=== PATIENT | female | born 1965 | race Hispanic/Latino ===

== ENCOUNTER 2021-05-12 10:52 | Inpatient (IN) | payer SELFPAY ==
[~2021-05-12 10:52] MED LIST: Iopamidol-370 76% 500 ML 1 ML ONE
[2021-05-12 11:27] LABS: #Lymphocytes 2.1 thou/uL (1.20-3.40); #Monocytes 0.7 thou/uL (0.11-0.59); #Neutrophils 10.5 thou/uL (1.40-6.50); %Basophils 0.2 % (0.0-1.0); %Eosinophils 0.1 % (0.0-10.0); %Lymphocytes 15.4 % (21.0-51.0); %Monocytes 5.4 % (0.0-10.0); %Neutrophils 78.9 % (42.0-75.0); Hemoglobin 15.5 g/dL (12.0-16.0); Mean Corpuscular HGB CONC 34.4 g/dL (32.0-36.0); Mean Corpuscular Hemoglobin 29.3 pg (27.0-31.0); Mean Platelet Volume 9.7 fL (7.4-10.4); Platelet Count 242 thou/uL (130-400); RBC Distribution Width 11.6 % (11.5-14.5); White Blood Cell (WBC) Count 13.3 thou/uL (4.8-10.8)
[2021-05-12] MEDS ORDERED: cefTRIAXone\\ROCEPHIN 2 GM VIAL ONE (11:30)
[2021-05-12 11:55] LABS: Bilirubin Unable to Interpret (Negative); Blood, Urine Unable to Interpret (Negative); Clarity Cloudy (Clear); Glucose, Urine (Dipstick) Unable to Interpret mg/dL (Negative); Ketone, Urine Unable to Interpret mg/dL (Negative); Leukocyte Unable to Interpret Leu/uL (Negative); Nitrite Unable to Interpret (Negative); Protein, Urine (Dipstick) Unable to Interpret mg/dL (Neg-Trace); Specific Gravity, Urine 1.039 (1.002-1.036); Urobilinogen UNABLE TO INTERPRET mg/dL (Less than 2)
[2021-05-12 11:56] LABS: RBC/HPF Greater than 50 HPF (0-3)
[2021-05-12 11:57] LABS: Bacteria/HPF Rare-Few HPF (None Seen); Squamous Epithelial 0-3 HPF (0-3)
[2021-05-12 12:20] LABS: INR-International Normal Ratio 1.1; PTT 30.5 sec (22.9-36.1)
[2021-05-12 12:31] LABS: ALT (SGPT) 24 U/L (8-55); AST (SGOT) 18 U/L (5-34); Albumin 3.6 g/dL (3.5-5.0); Alkaline Phosphatase 94 U/L (40-110); Anion Gap 17 mmol/L (10-20); BUN (Urea Nitrogen) 11 mg/dL (9.8-20.1); Bilirubin, Total 0.5 mg/dL (0.2-1.2); Calc. Creatinine Clearance 0 mL/min (70-130); Calcium 8.8 mg/dL (7.8-10.44); Carbon Dioxide 19 mmol/L (22-29); Chloride 99 mmol/L (98-107); Globulin 3.9 g/dL (2.4-3.5); Glucose 307 mg/dL (70-105); Potassium 3.5 mmol/L (3.5-5.1); Protein, Total 7.5 g/dL (6.0-8.3); Sodium 131 mmol/L (136-145)
[2021-05-12 14:28] LABS: Lactic Acid 1.4 mmol/L (0.5-2.2)
[2021-05-12] MEDS ORDERED: Ondansetron ODT 4 MG TAB PO PRN (15:41)
[2021-05-12] MEDS ORDERED: Dextrose 5% in Water 1,000 ML IV PRN (15:41)
[2021-05-12] MEDS ORDERED: Dextrose 50% Abboject 50 ML SYRINGE SLOW IVP PRN (15:41)
[2021-05-12] MEDS ORDERED: Acetaminophen 325 MG TAB PO PRN (15:41)
[2021-05-12] MEDS ORDERED: HumaLOG 300 UNITS/3 ML VIAL SC PRN (15:41)
[2021-05-12 15:55] VITALS: BMI 28.3
[2021-05-12] MEDS ORDERED: cefTRIAXone\\ROCEPHIN 2 GM in Sodium Chloride 0.9% 100 ML IVPB SCH (16:00)
[2021-05-12] MEDS ORDERED: metroNIDAZOLE 500 MG TAB PO SCH (16:15)
[2021-05-12] MEDS: Sodium Chloride 0.9% 1,000 ML IV SCH ×2 (17:00→21:06)
[2021-05-12] MEDS: HumaLOG 300 UNITS/3 ML VIAL SC PRN (17:02)
[2021-05-12 21:00] LABS: SARS-CoV-2 PCR by NAA Not Detected (NotDetected)
[2021-05-12] MEDS: metroNIDAZOLE 500 MG TAB PO SCH (21:06)
[2021-05-12] MEDS ORDERED: metroNIDAZOLE 500 MG in Premix Bag 1 BAG IVPB SCH (22:00)
[2021-05-13] MEDS: HumaLOG 300 UNITS/3 ML VIAL SC PRN ×2 (05:25→12:59)
[2021-05-13 08:00] LABS: #Eosinphils 0.1 thou/uL (0.0-0.7); #Lymphocytes 1.5 thou/uL (1.20-3.40); #Monocytes 0.6 thou/uL (0.11-0.59); %Basophils 0.5 % (0.0-1.0); %Eosinophils 1.5 % (0.0-10.0); %Lymphocytes 24.6 % (21.0-51.0); %Monocytes 8.8 % (0.0-10.0); %Neutrophils 64.6 % (42.0-75.0); Hemoglobin 12.6 g/dL (12.0-16.0); Mean Corpuscular HGB CONC 33.5 g/dL (32.0-36.0); Mean Corpuscular Hemoglobin 29.8 pg (27.0-31.0); Mean Corpuscular Volume 88.9 fL (78.0-98.0); Mean Platelet Volume 9.9 fL (7.4-10.4); Platelet Count 169 thou/uL (130-400); RBC Distribution Width 11.8 % (11.5-14.5); Red Blood Cell (RBC) Count 4.22 mill/uL (4.20-5.40); White Blood Cell (WBC) Count 6.2 thou/uL (4.8-10.8)
[2021-05-13 08:30] LABS: Anion Gap 15 mmol/L (10-20); BUN (Urea Nitrogen) 7 mg/dL (9.8-20.1); Calc. Creatinine Clearance 127 mL/min (70-130); Glucose 207 mg/dL (70-105)
[2021-05-13 08:31] LABS: Calcium 8.7 mg/dL (7.8-10.44); Chloride 105 mmol/L (98-107); Potassium 3.6 mmol/L (3.5-5.1); Sodium 133 mmol/L (136-145)
[2021-05-13 08:35] LABS: Hemoglobin A1c 12.8 % (4.0-6.0)
[2021-05-13] MEDS: metroNIDAZOLE 500 MG TAB PO SCH ×2 (08:59→14:38)
[2021-05-13 16:04] VITALS: TEMP 98.3
[2021-05-13 17:00] VITALS: BP 163/95
[2021-05-13 19:55] LABS: Carbon Dioxide 32 mmol/L (22-29)
== END 2021-05-13 17:26 | disposition home or self-care (01) | DRG 872 ==
LOC: ERS 10:52 → T4-B 14:07
PROVIDERS: ADMIT Emergency Medicine; ATTEND Internal Medicine
DX: A41.9 Sepsis, unspecified organism (principal); Z20.822 Contact with and (suspected) exposure to COVID-19; N30.01 Acute cystitis with hematuria; E87.1 Hypo-osmolality and hyponatremia; K57.20 Diverticulitis of large intestine with perforation and abscess without bleeding; E11.65 Type 2 diabetes mellitus with hyperglycemia; I10 Essential (primary) hypertension; B96.20 Unspecified Escherichia coli [E. coli] as the cause of diseases classified elsewhere; Z79.899 Other long term (current) drug therapy; Z79.84 Long term (current) use of oral hypoglycemic drugs
CPT/HCPCS: 36415; 36416; 74177; 80048; 80053; 81003; 81015; 83036; 83605; 85025; 85610; 85730; 87040; 87077; 87086; 87186; 93005; 94760; J0696; J1815; J3490; J7050; Q9967; U0003; U0005

== ENCOUNTER 2021-05-26 11:36 | Emergency (ER) | payer OTHER, SELFPAY ==
[2021-05-26] MEDS ORDERED: Ketorolac Tromethamine 30 MG/ML VIAL ONE (12:13)
== END 2021-05-26 12:59 | disposition home or self-care (01) ==
LOC: ERS 11:36
DX: N81.4 Uterovaginal prolapse, unspecified (principal); I10 Essential (primary) hypertension; E11.9 Type 2 diabetes mellitus without complications
CPT/HCPCS: 96372; 99284; J1885